=== PATIENT | female | born 2000 | race African-American/Black ===

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

== ENCOUNTER 2020-02-23 16:27 | Emergency (ER) | payer SELFPAY ==
[2020-02-23 16:37] VITALS: BP 109/70
[2020-02-23] MEDS ORDERED: TOBRAM/DEXAMETH OPHTH DROPS 2.5 ML RIGHTEYE STA (16:52)
--- NOTE | 2020-02-23 16:55 | ED Physician Documentation ---
PD HPI OPHTHO - Stated complaint Stated Complaint: RT EYE SWELLING/PX - Chief complaint Chief Complaint: Heent - History obtained from History obtained from: Patient - History of Present Illness Timing - onset: Other (19-year-old noncontact lens wear presents with 4 days of progressive redness of the eye, drainage and photophobia.) Review of Systems Constitutional: denies: Fever, Chills Ears: denies: Loss of hearing, Ear pain Nose: denies: Rhinorrhea / runny nose, Congestion Throat: denies: Sore throat PD PAST MEDICAL HISTORY - Past Medical History Past Medical History: Yes Cardiovascular: None Respiratory: None Neuro: None Endocrine/Autoimmune: None GI: None 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 : None HEENT: None Psych: Depression, Anxiety Musculoskeletal: None Derm: None - Past Surgical History Past Surgical History: No - Present Medications Home Medications: Ambulatory Orders Medication Instructions Recorded Confirmed Tobramycin/Dexamethasone [Tobradex 1 drops OP QID #1 drops.susp 02/23/20 Eye Drops] - Allergies Allergies/Adverse Reactions: Allergies Allergy/AdvReac Type Severity Reaction Status Date / Time No Known Drug Allergies Allergy Verified 02/23/20 16:33 - Social History Does the pt smoke?: Yes Smoking Status: Former smoker Does the pt drink ETOH?: Yes Does the pt have substance abuse?: No - Immunizations Immunizations are current?: Yes - POLST Patient has POLST: No PD ED PE NORMAL - Vitals Vital signs reviewed: Yes - General General: Alert and oriented X 3, No acute distress - HEENT HEENT: Other (She has conjunctivitis and photophobia. There is no fluorescein uptake. No cell or flare on slit-lamp examination. Right eye Marty-Pen is 14.) - Neck Neck: Supple, no meningeal sign, No bony TTP - Neuro Neuro: Alert and oriented X 3, Normal speech Results - Vitals Vitals: Vital Signs - 24 hr 02/23/20 16:34 Temperature 37.4 C Heart Rate 94 Respiratory 18 Rate Blood Pressure 109/70 O2 Saturation 98 Oxygen O2 Source Room air Departure - Departure Disposition: 01 Home, Self Care Clinical Impression: Conjunctivitis Qualifiers: Conjunctivitis type: acute Acute conjunctivitis type: unspecified Laterality: right Qualified Code(s): H10.31 - Unspecified acute conjunctivitis, right eye Condition: Good Record reviewed to determine appropriate education?: Yes Instructions: ED Conjunctivitis Nonspecific Follow-Up: Alex Silva MD [Provider Admit Priv/Credential] - (Tuesday if not better) Prescriptions: Tobramycin/Dexamethasone [Tobradex Eye Drops] 1 drops OP QID #1 drops.susp Comments: Follow-up with the eye doctor on Tuesday if not improving, return for new or worsening symptoms.
== END 2020-02-23 17:01 | disposition home or self-care (01) ==
LOC: ED 16:27
DX: H10.31 Unspecified acute conjunctivitis, right eye (principal); Z87.891 Personal history of nicotine dependence
CPT/HCPCS: 99282; 99283; A9270